=== PATIENT | male | born 1995 | race Caucasian/White ===

== ENCOUNTER 2017-04-17 16:53 | Emergency (ER) | payer OTHER ==
[2017-04-17] MEDS ORDERED: Sodium Chloride 0.9% 1,000 ML IV ONE (16:59)
--- NOTE | 2017-04-17 17:04 | EDM.PDOC ---
ED HPI GENERAL MEDICAL PROBLEM - General Stated Complaint: FLIPPED OVER Time Seen by Provider: 04/17/17 16:59 Source of Information: Reports: Patient History Limitations: Reports: No Limitations - History of Present Illness INITIAL COMMENTS - FREE TEXT/NARRATIVE: HISTORY AND PHYSICAL: History of present illness: Patient is a 21-year-old male who presents to the emergency room with complaints of syncope. He states he was bent over and pulling on something heavy when he went to back up he states he fell and woke up on the ground. Bystanders stated that he had "twitching" briefly. Coworker was driving him to the hospital and the patient was stating he was hearing music (which was not playing). Complaining of some blurred vision which is "clearing up now". States he ate a good breakfast and has been drinking fluids today. Prior to this incident was feeling well. Was not incontinent of urine or stool. Denies any abdominal pain, nausea, vomiting or diarrhea. He denies any alcohol or drug abuse. Review of systems: As per history of present illness and below otherwise all systems reviewed and negative. Past medical history: As per history of present illness and as reviewed below otherwise noncontributory. Surgical history: As per history of present illness and as reviewed below otherwise noncontributory. Social history: No reported history of drug or alcohol abuse. Family history: As per history of present illness and as reviewed below otherwise noncontributory. Physical exam: General: HEENT: No crepitus or tenderness with palpation, normocephalic, pupils reactive bilaterally, negative for conjunctival pallor or scleral icterus, mucous membranes moist, throat clear, neck supple, nontender, trachea midline. Lungs: Clear to auscultation, breath sounds equal bilaterally, chest nontender. Heart: S1S2, regular rate and rhythm Abdomen: Soft, nondistended, nontender. Negative for masses or hepatosplenomegaly. Negative for costovertebral tenderness. Pelvis: Stable nontender. Genitourinary: Deferred. Rectal: Deferred. C-Spine/Back: No pinpoint vertebral tenderness upon palpation. No crepitus, step -offs or obvious deformities noted. Patient is ambulatory with a steady gait. Able to walk on his heels and toes. No urinary or fecal incontinence. Denies any numbness or tingling to his extremities. Extremities: Atraumatic, negative for cords or calf pain. Neurovascular unremarkable. Neuro: Awake, alert, oriented. Cranial nerves II through XII unremarkable. Cerebellum unremarkable. Motor and sensory unremarkable throughout. Exam nonfocal. Bedside blood sugar was 63. Gatorade and PB sandwich was given to the patient. Repeat blood sugar (drank 1/2 gatorade) was in the high 90s. WBC was elevated but this doesn't correlate with patient presentation, also was dehydrated. CMP, troponin, chest x-ray, head CT and EKG were benign. Did offer the patient observation admission. He states that he feels safe going home and declines admission at this time. Discussed with patient to eat small frequent meals to prevent blood sugar from dropping. Encouraged him to drink plenty of fluids and decrease the energy drinks. Mother is at the bedside and states she will make him an appointment to see Dr. farris next week. She voices understanding and is agreeable to plan of care. He denies any questions at this time. Diagnostics: CBC, CMP, troponin, chest x-ray, EKG, head CT Therapeutics: IV Fluid Impression: #1 Syncope #2 Hypoglycemic Event Plan: 1. Please eat small frequent meals to prevent your blood sugar from dropping too low. 2. Stop the energy drinks. Increase your water intake. 3. Follow up with Dr. Farris next week. Return to the ED as needed and as discussed. Definitive disposition and diagnosis as appropriate pending reevaluation and review of above. Duration: Minutes: Location: Reports: Generalized - Related Data Allergies Allergy/AdvReac Type Severity Reaction Status Date / Time No Known Allergies Allergy Verified 04/17/17 17:03 Home Meds: Home Meds . [No Known Home Meds] 08/17/13 [History] Past Medical History HEENT History: Reports: None Cardiovascular History: Reports: None Respiratory History: Reports: Asthma, Bronchitis, Recurrent Gastrointestinal History: Reports: None Genitourinary History: Reports: None Musculoskeletal History: Reports: None Neurological History: Reports: None Psychiatric History: Reports: None Endocrine/Metabolic History: Reports: None Hematologic History: Reports: None Immunologic History: Reports: None Oncologic (Cancer) History: Reports: None Dermatologic History: Reports: None - Past Surgical History HEENT Surgical History: Reports: Other (See Below) Musculoskeletal Surgical History: Reports: Other (See Below) Social & Family History - Family History Family Medical History: Noncontributory Endocrine/Metabolic: Reports: Diabetes, type II - Tobacco Use Smoking Status *Q: Light Tobacco Smoker Years of Tobacco use: 1 Packs/Tins Daily: 0.1 Second Hand Smoke Exposure: No - Alcohol Use Days Per Week of Alcohol Use: 0 - Recreational Drug Use Recreational Drug Use: No ED ROS GENERAL - Review of Systems Review Of Systems: ROS reveals no pertinent complaints other than HPI. - Physical Exam Exam: See Below (See dictation) Course - Vital Signs Last Recorded V/S: Last Vital Signs Temp 98.4 F 04/17/17 17:02 Pulse 95 04/17/17 17:02 Resp 20 04/17/17 17:02 BP 129/64 04/17/17 17:02 Pulse Ox 98 04/17/17 17:02 Orthostatic Blood Pressure [ 126/62 Standing] Orthostatic Blood Pressure [ 129/61 Sitting] Orthostatic Blood Pressure [ 130/69 Supine] - Orders/Labs/Meds Orders: Active Orders 24 hr Category Date Time Status Cardiac Monitoring [RC] . DIRECTED Care 04/17/17 17:00 Active EKG Documentation Completion [RC] STAT Care 04/17/17 16:59 Active Orthostatic Vital Signs [RC] ASDIRECTED Care 04/17/17 17:00 Active Oxygen Therapy, ED [RC] ASDIRECTED Care 04/17/17 17:00 Active Chest 1V Frontal [CR] Stat Exams 04/17/17 16:59 Taken Head wo Cont [CT] Stat Exams 04/17/17 17:01 Taken Labs: Laboratory Tests 04/17/17 04/17/17 04/17/17 Range/Units 17:06 17:15 17:15 WBC 16.36 H (4.0-11.0) K/uL RBC 5.19 (4.50-5.90) M/uL Hgb 15.9 (13.0-17.0) g/dL Hct 43.9 (38.0-50.0) % MCV 84.6 (80.0-98.0) fL MCH 30.6 (27.0-32.0) pg MCHC 36.2 (31.0-37.0) g/dL RDW Std Deviation 38.9 (28.0-62.0) fl RDW Coeff of Toan 13 (11.0-15.0) % Plt Count 202 (150-400) K/uL MPV 9.80 (7.40-12.00) fL Neut % (Auto) 83.3 H (48.0-80.0) % Lymph % (Auto) 9.2 L (16.0-40.0) % Elbert % (Auto) 7.3 (0.0-15.0) % Eos % (Auto) 0.1 (0.0-7.0) % Baso % (Auto) 0.1 (0.0-1.5) % Neut # (Auto) 13.6 H (1.4-5.7) K/uL Lymph # (Auto) 1.5 (0.6-2.4) K/uL Elbert # (Auto) 1.2 H (0.0-0.8) K/uL Eos # (Auto) 0.0 (0.0-0.7) K/uL Baso # (Auto) 0.0 (0.0-0.1) K/uL Nucleated RBC % 0.0 /100WBC Nucleated RBCs # 0 K/uL Sodium 140 (136-146) mmol/L Potassium 3.7 (3.5-5.1) mmol/L Chloride 105 (98-110) mmol/L Carbon Dioxide 21 (21-31) mmol/L BUN 16 (6.0-23.0) mg/dL Creatinine 1.0 (0.6-1.5) mg/dL Est Cr Clr Drug Dosing 117.83 mL/min Estimated GFR (MDRD) > 60.0 ml/min Glucose 62 (60-110) mg/dL POC Glucose 63 (60-110) mg/dL Calcium 9.7 (8.8-10.8) mg/dL Total Bilirubin 1.2 (0.1-1.5) mg/dL AST 40 (5-40) IU/L ALT 28 (8-54) IU/L Alkaline Phosphatase 60 (40-150) Troponin I < 0.10 (0.0-0.29) NG/ML Total Protein 7.7 (6.0-8.0) g/dL Albumin 4.9 (3.5-5.0) g/dL Globulin 2.8 (2.0-3.5) g/dL Albumin/Globulin Ratio 1.8 (1.3-2.8) 04/17/17 Range/Units 18:40 WBC (4.0-11.0) K/uL RBC (4.50-5.90) M/uL Hgb (13.0-17.0) g/dL Hct (38.0-50.0) % MCV (80.0-98.0) fL MCH (27.0-32.0) pg MCHC (31.0-37.0) g/dL RDW Std Deviation (28.0-62.0) fl RDW Coeff of Toan (11.0-15.0) % Plt Count (150-400) K/uL MPV (7.40-12.00) fL Neut % (Auto) (48.0-80.0) % Lymph % (Auto) (16.0-40.0) % Elbert % (Auto) (0.0-15.0) % Eos % (Auto) (0.0-7.0) % Baso % (Auto) (0.0-1.5) % Neut # (Auto) (1.4-5.7) K/uL Lymph # (Auto) (0.6-2.4) K/uL Elbert # (Auto) (0.0-0.8) K/uL Eos # (Auto) (0.0-0.7) K/uL Baso # (Auto) (0.0-0.1) K/uL Nucleated RBC % /100WBC Nucleated RBCs # K/uL Sodium (136-146) mmol/L Potassium (3.5-5.1) mmol/L Chloride (98-110) mmol/L Carbon Dioxide (21-31) mmol/L BUN (6.0-23.0) mg/dL Creatinine (0.6-1.5) mg/dL Est Cr Clr Drug Dosing mL/min Estimated GFR (MDRD) ml/min Glucose (60-110) mg/dL POC Glucose 98 (60-110) mg/dL Calcium (8.8-10.8) mg/dL Total Bilirubin (0.1-1.5) mg/dL AST (5-40) IU/L ALT (8-54) IU/L Alkaline Phosphatase (40-150) Troponin I (0.0-0.29) NG/ML Total Protein (6.0-8.0) g/dL Albumin (3.5-5.0) g/dL Globulin (2.0-3.5) g/dL Albumin/Globulin Ratio (1.3-2.8) Meds: Medications Discontinued Medications Generic Name Dose Route Start Last Admin Trade Name Bryant PRN Reason Stop Dose Admin Sodium Chloride 1,000 mls @ 999 mls/hr 04/17/17 16:59 04/17/17 18:10 Normal Saline IV 04/17/17 17:59 999 mls/hr STAT ONE Administration Departure - Departure Time of Disposition: 19:01 Disposition: Home, Self-Care 01 Clinical Impression: Hypoglycemia Syncope Qualifiers: Syncope type: vasovagal syncope Qualified Code(s): R55 - Syncope and collapse - Discharge Information Referrals: Vladislav Farris MD [Primary Care Provider] - Additional Instructions: My general discharge The following information is given to patients seen in the emergency department who are being discharged to home. This information is to outline your options for follow-up care. We provide all patients seen in our emergency department with a follow-up referral. The need for follow-up, as well as the timing and circumstances, are variable depending upon the specifics of your emergency department visit. If you don't have a primary care physician on staff, we will provide you with a referral. We always advise you to contact your personal physician following an emergency department visit to inform them of the circumstance of the visit and for follow-up with them and/or the need for any referrals to a consulting specialist. The emergency department will also refer you to a specialist when appropriate. This referral assures that you have the opportunity for follow-up care with a specialist. All of these measure are taken in an effort to provide you with optimal care, which includes your follow-up. Under all circumstances we always encourage you to contact your private physician who remains a resource for coordinating your care. When calling for follow-up care, please make the office aware that this follow-up is from your recent emergency room visit. If for any reason you are refused follow-up, please contact the [facility] Emergency Department at and asked to speak to the emergency department charge nurse. [facility] [address] [place] [id number] 1. Please eat small frequent meals to prevent your blood sugar from dropping too low. 2. Stop the energy drinks. Increase your water intake. 3. Follow up with Dr. Farris next week. Return to the ED as needed and as discussed. - My Orders Last 24 Hours: My Active Orders 04/17/17 16:59 EKG Documentation Completion [RC] STAT Chest 1V Frontal [CR] Stat 04/17/17 17:00 Cardiac Monitoring [RC] . DIRECTED Orthostatic Vital Signs [RC] ASDIRECTED Oxygen Therapy, ED [RC] ASDIRECTED 04/17/17 17:01 Head wo Cont [CT] Stat - Assessment/Plan Last 24 Hours: My Active Orders 04/17/17 16:59 EKG Documentation Completion [RC] STAT Chest 1V Frontal [CR] Stat 04/17/17 17:00 Cardiac Monitoring [RC] . DIRECTED Orthostatic Vital Signs [RC] ASDIRECTED Oxygen Therapy, ED [RC] ASDIRECTED 04/17/17 17:01 Head wo Cont [CT] Stat
[2017-04-17 17:48] LABS: CHLORIDE,CL 105 mmol/L (98-110); SODIUM,NA 140 mmol/L (136-146)
[2017-04-17 21:12] VITALS: BP 127/77
--- NOTE | 2017-04-18 16:41 | CT ---
EXAM DATE: 04/17/17 PATIENT'S AGE: 21 Patient: AMY MCQUEEN Facility: [place], [place] Site . Site : 1995 Study: CT Head WO CONT [id number]/28/2018 6:34:11 PM Ordering Physician: Doctor Camargo Final Report: INDICATION: Fell and hit head today. TECHNIQUE: CT head without IV contrast. FINDINGS: Small polyp or retention cyst in the sphenoid sinus. No intracranial hemorrhage , edema, or mass effect. Remainder negative. IMPRESSION: No acute intracranial disease. Findings as above. Please note that all CT scans at this facility use dose modulation, iterative reconstruction, and/or weight-based dosing when appropriate to reduce radiation dose to as low as reasonably achievable. Dictated by Singh Rico MD @ Apr 17 2017 6:41PM (Electronic Signature) Report Signed by Proxy. MTDKarson
--- NOTE | 2017-04-18 16:41 | CR ---
EXAM DATE: 04/17/17 PATIENT'S AGE: 21 Patient: AMY MCQUEEN Facility: [place], [place] Site . Site : 1995 Study: XRay Chest [id number]/28/2018 6:20:58 PM Ordering Physician: Doctor Camargo Final Report: INDICATION: Syncope TECHNIQUE: Chest 1 view. COMPARISON: None FINDINGS: No pneumothorax or pleural effusion. Lungs are clear. Cardiac and mediastinal contours are within normal limits. Upper abdomen and osseous structures as imaged show no acute abnormality. IMPRESSION: No acute cardiopulmonary disease. Dictated by: Aníbal Bennett MD @ 04/17/2017 18:31:10 (Electronic Signature) Report Signed by Proxy. [facility]
== END 2017-04-17 19:15 | disposition home or self-care (01) ==
LOC: MW.ED 16:53
DX: R55 Syncope and collapse (principal); E11.649 Type 2 diabetes mellitus with hypoglycemia without coma; F17.210 Nicotine dependence, cigarettes, uncomplicated
CPT/HCPCS: 36415; 70450; 71045; 80053; 82962; 84484; 85025; 87804; 93005; 96360; 99285; J7040

== ENCOUNTER 2017-08-13 13:46 | Emergency (ER) | payer OTHER ==
[2017-08-13 14:11] VITALS: BP 138/71
--- NOTE | 2017-08-13 14:17 | EDM.PDOC ---
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 Review of Systems: As per history of present illness and below otherwise all systems reviewed and negative. Past medical history: As per history of present illness and as reviewed below otherwise noncontributory. Surgical history: As per history of present illness and as reviewed below otherwise noncontributory. Social history: No reported history of drug or alcohol abuse. Family history: As per history of present illness and as reviewed below otherwise noncontributory. Physical exam: Alert young man answers questions appropriately in full sentences without any shortness of breath he has to in his mouth. HEENT: Atraumatic, normocehpalic, pupils reactive, negative for conjunctival pallor or scleral icterus, mucous membranes moist, throat clear, neck supple, nontender, trachea midline. Lungs: Clear to auscultation, breath sounds equal bilaterally, chest non tender. Heart: S1S2, regular, negative for clicks, rubs, or JVD. Abdomen: Soft, nondistended, nontender. Negative for masses or hepatossplenmegaly. Negative for costovertebral tenderness. Pelvis: Stable nontender. Genitourinary: Deferred. Rectal: Deferred Extremities: Atraumatic, negative for cords or calf pain. Minimal edema present , he has good radial pulse, sensation is intact, fingers are able to move. Medial portion of his wrist is painful upon palpation. Neurovascular unremarkable. Neuro: Awake, alert, oriented. Cranial nerves II through XII unremarkable. Cerebellum unremarkable. Motor and sensory unremarkable throughout. Exam nonfocal. Diagnostics: []xray left wrist Therapeutics: []wrist splint Impression: []sprain left wrist Plan: []Discharged home Ibuprofen for discomfort 3 times daily Follow up with your primary care provider next week if not improving Definitive disposition and diagnosis as appropriate pending reevaluation and review of above. Onset: Sudden Duration: Day(s): (4) Location: Reports: Upper Extremity, Left Left Wrist Pain Score (Numeric/FACES): 3 - Related Data Allergies Allergy/AdvReac Type Severity Reaction Status Date / Time No Known Allergies Allergy Verified 08/13/17 14:11 Home Meds: Home Meds . [No Known Home Meds] 08/17/13 [History] Past Medical History HEENT History: Reports: None Cardiovascular History: Reports: None Respiratory History: Reports: Asthma, Bronchitis, Recurrent Gastrointestinal History: Reports: None Genitourinary History: Reports: None Musculoskeletal History: Reports: None Neurological History: Reports: None Psychiatric History: Reports: None Endocrine/Metabolic History: Reports: None Hematologic History: Reports: None Immunologic History: Reports: None Oncologic (Cancer) History: Reports: None Dermatologic History: Reports: None - Past Surgical History HEENT Surgical History: Reports: Other (See Below) Musculoskeletal Surgical History: Reports: Other (See Below) Social & Family History - Family History Family Medical History: Noncontributory Endocrine/Metabolic: Reports: Diabetes, type II - Caffeine Use Caffeine Use: Reports: None Review of Systems - Review of Systems Review Of Systems: ROS reveals no pertinent complaints other than HPI. ED EXAM, GENERAL - Physical Exam Exam: See Below (see dictation) Course - Vital Signs Last Recorded V/S: Last Vital Signs Temp 37.1 C 08/13/17 14:08 Pulse 82 08/13/17 14:08 Resp 18 08/13/17 14:08 BP 138/71 08/13/17 14:08 Pulse Ox 97 08/13/17 14:08 - Orders/Labs/Meds Orders: Active Orders 24 hr Category Date Time Status Splinting [RC] ASDIRECTED Care 08/13/17 15:01 Active Wrist 2V Lt [CR] Stat Exams 08/13/17 14:14 Taken Departure - Departure Time of Disposition: 15:06 Disposition: Home, Self-Care 01 Condition: Good Clinical Impression: Left wrist sprain Qualifiers: Encounter type: initial encounter Qualified Code(s): S63.502A - Unspecified sprain of left wrist, initial encounter - Discharge Information Instructions: Cast or Splint Care, Adult, [id number], Wrist Sprain, Adult Referrals: PCP,None [Primary Care Provider] - Forms: ED Department Discharge Additional Instructions: The following information is given to patients seen in the emergency department who are being discharged to home. This information is to outline your options for follow-up care. We provide all patients seen in our emergency department with a follow-up referral. The need for follow-up, as well as the timing and circumstances, are variable depending upon the specifics of your emergency department visit. If you don't have a primary care physician on staff, we will provide you with a referral. We always advise you to contact your personal physician following an emergency department visit to inform them of the circumstance of the visit and for follow-up with them and/or the need for any referrals to a consulting specialist. The emergency department will also refer you to a specialist when appropriate. This referral assures that you have the opportunity for followup care with a specialist. All of these measure are taken in an effort to provide you with optimal care, which includes your followup. Under all circumstances we always encourage you to contact your private physician who remains a resource for coordinating your care. When calling for followup care, please make the office aware that this follow-up is from your recent emergency room visit. If for any reason you are refused follow-up, please contact the [facility] emergency department at and asked to speak to the emergency department charge nurse. Ibuprofen 3 times daily for discomfort must eat with this Follow-up with your primary care provider in this next week if not improving Return to emergency department as directed and discussed - My Orders Last 24 Hours: My Active Orders 08/13/17 14:14 Wrist 2V Lt [CR] Stat 08/13/17 15:01 Splinting [RC] ASDIRECTED - Assessment/Plan Last 24 Hours: My Active Orders 08/13/17 14:14 Wrist 2V Lt [CR] Stat 08/13/17 15:01 Splinting [RC] ASDIRECTED
--- NOTE | 2017-08-15 12:29 | CR ---
EXAM DATE: 08/13/17 PATIENT'S AGE: 22 Patient: AMY MCQUEEN Facility: [place], [place] Site . Site : 1995 Study: XRay Extremity Left wrist [id number] 2:32:10 PM Ordering Physician: Doctor Camargo Final Report: INDICATION: Left wrist injury. TECHNIQUE: Two views of the left wrist. COMPARISON: None. FINDINGS: No fracture, subluxation or other abnormality. CONCLUSION: Negative left wrist. Dictated by Derek Kenny MD @ Aug 13 2017 2:56PM (Electronic Signature) Report Signed by Proxy. [facility]
== END 2017-08-13 15:17 | disposition home or self-care (01) ==
LOC: MW.ED 13:46
DX: S63.502A Unspecified sprain of left wrist, initial encounter (principal); W22.8XXA Striking against or struck by other objects, initial encounter; J45.909 Unspecified asthma, uncomplicated; Y99.0 Civilian activity done for income or pay
CPT/HCPCS: 73100-26-LT; 73100-LT; 99283

== ENCOUNTER 2017-11-13 20:08 | Emergency (ER) | payer OTHER ==
--- NOTE | 2017-11-13 20:23 | EDM.PDOC ---
ED HPI GENERAL MEDICAL PROBLEM - General Chief Complaint: Upper Extremity Injury/Pain Stated Complaint: SLAMMED LEFT HAND IN CAR DOOR. Time Seen by Provider: 11/13/17 20:21 Source of Information: Reports: Patient History Limitations: Reports: No Limitations - History of Present Illness INITIAL COMMENTS - FREE TEXT/NARRATIVE: HISTORY AND PHYSICAL: History of present illness: Patient is a 22-year-old male here with complaint of right hand injury. He states that he slammed his right hand in a car door this afternoon. Otherwise in his usual state of health and denies any other trauma. Review of systems: As per history of present illness and below otherwise all systems reviewed and negative. Past medical history: As per history of present illness and as reviewed below otherwise noncontributory. Surgical history: As per history of present illness and as reviewed below otherwise noncontributory. Social history: No reported history of drug or alcohol abuse. Family history: As per history of present illness and as reviewed below otherwise noncontributory. Physical exam: General: Patient sitting comfortably in no acute distress and nontoxic appearing HEENT: Atraumatic, normocephalic, pupils reactive, negative for conjunctival pallor or scleral icterus, mucous membranes moist, throat clear, neck supple, nontender, trachea midline. No meningeal signs. Lungs: Clear to auscultation, breath sounds equal bilaterally, chest nontender. Heart: S1S2, regular, negative for clicks, rubs, or overt murmur. Extremities: Right hand is swollen on the ulnar. There is ecchymosis over the volar aspect of the hand. He has full ROM at MCP, PIP, DIP. Small abrasion to the 3rd mcp. negative for cords or calf pain. Neurovascular unremarkable. Neuro: Awake, alert, oriented. Cranial nerves II through XII unremarkable. Cerebellum unremarkable. Motor and sensory unremarkable throughout. Exam nonfocal. Notes: Diagnostics: X-ray right hand Therapeutics: None Prescriptions: None Impression: Right hand injury Plan: 1. Ice, elevate, and motrin as needed 2. Follow up with your primary care provider or orthopedics 3. Return to ED as needed as discussed Definitive disposition and diagnosis as appropriate pending reevaluation and review of above. - Related Data Allergies Allergy/AdvReac Type Severity Reaction Status Date / Time No Known Allergies Allergy Verified 11/13/17 20:23 Home Meds: Home Meds . [No Known Home Meds] 08/17/13 [History] Past Medical History HEENT History: Reports: None Cardiovascular History: Reports: None Respiratory History: Reports: Asthma, Bronchitis, Recurrent Gastrointestinal History: Reports: None Genitourinary History: Reports: None Musculoskeletal History: Reports: None Neurological History: Reports: None Psychiatric History: Reports: None Endocrine/Metabolic History: Reports: None Hematologic History: Reports: None Immunologic History: Reports: None Oncologic (Cancer) History: Reports: None Dermatologic History: Reports: None - Past Surgical History HEENT Surgical History: Reports: Other (See Below) Musculoskeletal Surgical History: Reports: Other (See Below) Social & Family History - Family History Family Medical History: Noncontributory Endocrine/Metabolic: Reports: Diabetes, type II - Caffeine Use Caffeine Use: Reports: None Review of Systems - Review of Systems Review Of Systems: ROS reveals no pertinent complaints other than HPI. ED EXAM, GENERAL - Physical Exam Exam: See Below (See dictation) Course - Vital Signs Last Recorded V/S: Last Vital Signs Temp 36.6 C 11/13/17 20:23 Pulse 70 11/13/17 20:23 Resp 18 11/13/17 20:23 BP 144/73 H 11/13/17 20:23 Pulse Ox 98 11/13/17 20:23 - Orders/Labs/Meds Orders: Active Orders 24 hr Category Date Time Status Hand 2V Rt [CR] Stat Exams 11/13/17 20:21 Ordered Departure - Departure Time of Disposition: 21:15 Disposition: Home, Self-Care 01 Condition: Good Clinical Impression: Injury of right hand - Discharge Information Referrals: PCP,None [Primary Care Provider] - Forms: ED Department Discharge Additional Instructions: The following information is given to patients seen in the emergency department who are being discharged to home. This information is to outline your options for follow-up care. We provide all patients seen in our emergency department with a follow-up referral. The need for follow-up, as well as the timing and circumstances, are variable depending upon the specifics of your emergency department visit. If you don't have a primary care physician on staff, we will provide you with a referral. We always advise you to contact your personal physician following an emergency department visit to inform them of the circumstance of the visit and for follow-up with them and/or the need for any referrals to a consulting specialist. The emergency department will also refer you to a specialist when appropriate. This referral assures that you have the opportunity for follow-up care with a specialist. All of these measure are taken in an effort to provide you with optimal care, which includes your follow-up. Under all circumstances we always encourage you to contact your private physician who remains a resource for coordinating your care. When calling for follow-up care, please make the office aware that this follow-up is from your recent emergency room visit. If for any reason you are refused follow-up, please contact the [facility] Emergency Department at and asked to speak to the emergency department charge nurse. [facility] Primary [facility] [place] [id number] [facility] Special[facility] - [facility] Professional Building [address] [place] [address], [address] [place] [address] 1. Ice, elevate, and motrin as needed 2. Follow up with your primary care provider or orthopedics 3. Return to ED as needed as discussed - My Orders Last 24 Hours: My Active Orders 11/13/17 20:21 Hand 2V Rt [CR] Stat - Assessment/Plan Last 24 Hours: My Active Orders 11/13/17 20:21 Hand 2V Rt [CR] Stat
[2017-11-13 21:23] VITALS: BP 142/79
--- NOTE | 2017-11-14 15:18 | CR ---
EXAM DATE: 11/13/17 PATIENT'S AGE: 22 Patient: AMY MCQUEEN Facility: [place], [place] Site . Site : 1996 Study: XRay Extremity Right hand [id number] 8:53:12 PM Ordering Physician: Doctor Camargo Final Report: Indication: Crush injury. Technique: Two views of the right hand were obtained. Comparison: None Findings: No acute fracture or subluxation is identified. The joint spaces are well maintained. Impression: No acute fracture. Dictated by Karon Connors MD @ Nov 13 2017 9:13PM (Electronic Signature) Report Signed by Proxy. WILLIAM
== END 2017-11-13 21:23 | disposition home or self-care (01) ==
LOC: MW.ED 20:08
DX: S60.221A Contusion of right hand, initial encounter (principal); W23.0XXA Caught, crushed, jammed, or pinched between moving objects, initial encounter
CPT/HCPCS: 73120-26-RT; 73120-RT; 99283

== ENCOUNTER 2019-11-06 20:13 | Emergency (ER) | payer BC, OTHER ==
--- NOTE | 2019-11-06 20:39 | EDM.PDOC ---
ED HPI GENERAL MEDICAL PROBLEM - General Chief Complaint: Upper Extremity Injury/Pain Stated Complaint: hand injury/pain Time Seen by Provider: 11/06/19 20:15 Source of Information: Reports: Patient History Limitations: Reports: No Limitations - History of Present Illness INITIAL COMMENTS - FREE TEXT/NARRATIVE: HISTORY AND PHYSICAL: History of present illness: Patient is a 24-year-old male who presents to the emergency room with complaints of right hand pain. He states the pain is worse with flexion and extension of the fingers. Denies any injury, trauma or falls. He has not noticed any redness, soft tissue swelling or open areas of skin. He is left-hand dominant. He offers no systemic complaints. Review of systems: As per history of present illness and below otherwise all systems reviewed and negative. Past medical history: As per history of present illness and as reviewed below otherwise noncontributory. Surgical history: As per history of present illness and as reviewed below otherwise noncontributory. Social history: See social history for further information Family history: As per history of present illness and as reviewed below otherwise non contributory. Physical exam: General: Well developed and well nourished. Alert and orientated x 3. Nontoxic in appearance and in no acute distress. Vital signs are stable and have been reviewed by me. Nursing notes were reviewed. HEENT: Atraumatic, normocephalic, pupils equal and reactive bilaterally, negative for conjunctival pallor or scleral icterus, mucous membranes moist, trachea midline. No drooling or trismus noted. No meningeal signs. No hot potato voice noted. Lungs: Clear to auscultation, breath sounds equal bilaterally. Normal work of breathing, no accessory muscles used. Heart: S1S2, regular rate and rhythm without overt murmur Abdomen: Soft, nondistended, nontender. Skin: Scar noted along the third knuckle of right hand, reports this is 6+ years old. No erythema, soft tissue swelling or open sores noted. Intact, warm, dry. No lesions or rashes noted. Hematologic: No petechiae or purpra. Mucosa appropriate color and normal nail bed color and refill. Extremities: Atraumatic, pain with palpation of the mid dorsal aspect of right hand, moves all extremities per self without difficulty or deficits, strong radial pulse. Capillary refill less than 3 seconds. Strong grasp with good flexion and extension of all fingers. Neurovascular unremarkable. Neuro: Awake, alert, oriented. Cranial nerves II through XII unremarkable. Cerebellum unremarkable. Motor and sensory unremarkable throughout. Exam nonfocal. Psychiatric: Mood and affect are appropriate. Normal thought process. Answering questions appropriately. Notes: X-ray shows no acute findings. We discussed signs and symptoms that would prompt them to return to the Emergency Department. Medication, follow up and supportive care measures were reviewed and discussed. Voices understanding and is agreeable to plan of care. Denies any further questions or concerns at this time. Diagnostics: X-ray right hand Therapeutics: None Prescription: Diclofenac Impression: Right hand pain Plan: 1. Today your physical exam is within normal limits. Your x-ray shows no acute findings. Rest, ice, elevate the affected extremity. Please wear the splint as directed. 2. Tylenol and/or Ibuprofen as needed for pain management. 3. Follow up with the Orthopedic provider as we discussed. We always encourage you to follow up with your primary care provider or recommended specialist in the next few days for re-evaluation and further care/management. If your symptoms should worsen, new symptoms develop or any of the signs and symptoms we discussed should arise please return to the emergency room or call 911 (if need ed). Definitive disposition and diagnosis as appropriate pending reevaluation and review of above. right hand Pain Score (Numeric/FACES): 5 - Related Data Allergies Allergy/AdvReac Type Severity Reaction Status Date / Time No Known Allergies Allergy Verified 11/06/19 20:27 Home Meds: Home Meds . [No Known Home Meds] 08/17/13 [History] Past Medical History HEENT History: Reports: None Cardiovascular History: Reports: None Respiratory History: Reports: None Gastrointestinal History: Reports: None Genitourinary History: Reports: None Musculoskeletal History: Reports: None Neurological History: Reports: None Psychiatric History: Reports: None Endocrine/Metabolic History: Reports: None Insulin Pump Model and Claims Account Manager: None Hematologic History: Reports: None Immunologic History: Reports: None Oncologic (Cancer) History: Reports: None Dermatologic History: Reports: None - Infectious Disease History Infectious Disease History: Reports: None - Past Surgical History Head Surgeries/Procedures: Reports: None HEENT Surgical History: Reports: Other (See Below) Musculoskeletal Surgical History: Reports: Other (See Below) Other Musculoskeletal Surgeries/Procedures:: hand surgery Social & Family History - Family History Family Medical History: Noncontributory Endocrine/Metabolic: Reports: Diabetes, type II - Tobacco Use Smoking Status *Q: Never Smoker - Caffeine Use Caffeine Use: Reports: Coffee, Energy Drinks, Soda - Recreational Drug Use Recreational Drug Use: No Review of Systems - Review of Systems Review Of Systems: Comprehensive ROS is negative, except as noted in HPI. ED EXAM, GENERAL - Physical Exam Exam: See Below (See dictation) Course - Vital Signs Last Recorded V/S: Last Vital Signs Temp 96.8 F L 11/06/19 20:27 Pulse 87 11/06/19 20:27 Resp 18 11/06/19 20:27 BP 126/62 11/06/19 20:27 Pulse Ox 98 11/06/19 20:27 Departure - Departure Time of Disposition: 21:28 Disposition: Home, Self-Care 01 Clinical Impression: Right hand pain - Discharge Information Instructions: Pain Without a Known Cause Referrals: Vladislav Farris MD [Primary Care Provider] - Forms: ED Department Discharge Additional Instructions: The following information is given to patients seen in the emergency department who are being discharged to home. This information is to outline your options for follow-up care. We provide all patients seen in our emergency department with a follow-up referral. The need for follow-up, as well as the timing and circumstances, are variable depending upon the specifics of your emergency department visit. If you don't have a primary care physician on staff, we will provide you with a referral. We always advise you to contact your personal physician following an emergency department visit to inform them of the circumstance of the visit and for follow-up with them and/or the need for any referrals to a consulting specialist. The emergency department will also refer you to a specialist when appropriate. This referral assures that you have the opportunity for follow-up care with a specialist. All of these measure are taken in an effort to provide you with optimal care, which includes your follow-up. Under all circumstances we always encourage you to contact your private physician who remains a resource for coordinating your care. When calling for follow-up care, please make the office aware that this follow-up is from your recent emergency room visit. If for any reason you are refused follow-up, please contact the [facility] Emergency Department at and asked to speak to the emergency department charge nurse. [facility] Primary Care [address] [place] [address] [facility] [address] [place] [address] Thank you for choosing the [facility] emergency department in [place] for your medical needs today. It was a pleasure caring for you. Today you were seen in the emergency department for hand pain without injury. 1. Today your physical exam is within normal limits. Your x-ray shows no acute findings. This could be tendonitis or over use syndrome. Rest, ice, elevate the affected extremity. Please wear the splint as directed. 2. Tylenol and/or Ibuprofen as needed for pain management. 3. Follow up with the Orthopedic provider as we discussed. We always encourage you to follow up with your primary care provider or recommended specialist in the next few days for re-evaluation and further care/management. If your symptoms should worsen, new symptoms develop or any of the signs and symptoms we discussed should arise please return to the emergency room or call 911 (if needed). Sepsis Event Note (ED) - Evaluation Sepsis Screening Result: No Definite Risk - Focused Exam Vital Signs: Vital Signs Temp Pulse Resp BP Pulse Ox 11/06/19 20:27 96.8 F L 87 18 126/62 98
--- NOTE | 2019-11-06 21:22 | CR ---
Indication: Pain Technique: Right hand 3 views. Comparison: November 13, 2017. Findings: Bones: Alignment is normal. No fractures or bone lesions. Joint spaces: Unremarkable. Soft tissues: Unremarkable. Impression: Unremarkable right hand. No finding to explain pain. Dictated by Young Gagnon MD @ Nov 06 2019 9:19PM Signed by Dr. Young Gagnon @ Nov 06 2019 9:21PM
[2019-11-06 21:42] VITALS: BP 118/74; PULSE 81
== END 2019-11-06 21:39 | disposition home or self-care (01) ==
LOC: MW.ED 20:13
DX: M79.641 Pain in right hand (principal)
CPT/HCPCS: 29125; 73130-26-RT; 73130-RT; 99283; 99283-25

== ENCOUNTER 2020-01-11 20:26 | Emergency (ER) | payer BC ==
--- NOTE | 2020-01-11 21:48 | CR ---
Indication: Injury Technique: Three views of the right hand Comparison: None available Findings: Bones: Alignment is normal. No fractures or bone lesions. Joint spaces: Unremarkable. Soft tissues: A small calcific or metallic density in the distal tip of the 4th digit suggestive of a foreign body. A small focus of adjacent soft tissue irregularity/injury. Focal dorsal soft tissue swelling at the level of the MCP joints. Impression: No acute fracture or dislocation. A small focus of soft tissue injury at the tip of the 4th digit with a small adjacent soft tissue foreign body. Dictated by Michael Chavez MD @ Jan 11 2020 9:43PM Signed by Dr. Michael Chavez @ Jan 11 2020 9:46PM
--- NOTE | 2020-01-11 23:23 | EDM.PDOC ---
ED HPI GENERAL MEDICAL PROBLEM - General Chief Complaint: Upper Extremity Injury/Pain Stated Complaint: RIGHT HAND FINGER INJURY Time Seen by Provider: 01/11/20 20:29 Source of Information: Reports: Patient History Limitations: Reports: No Limitations - History of Present Illness INITIAL COMMENTS - FREE TEXT/NARRATIVE: 24-year-old male presents with right fourth finger injury this morning. He smashed his right fourth digit in a car door this morning. He is left-handed. Tetanus is up-to-date. ROS: A 10-point review of systems, other than pertinent positives and negatives as stated per HPI, is otherwise negative Past medical history: No additional pertinent history Past Surgical history: No additional pertinent history Social history: No additional pertinent history Family history: No additional pertinent history PHYSICAL EXAM General: AOx4, GCS = 15, No distress HEENT: dry mucous membrane Neck: supple, no meningismus, no Kernig or Brudzinski Cardiac: S1S2 RRR Respiratory: CTAB, no crackles or rales, no wheezing Abdomen: Soft, nontender, no rebound or guarding, nondistended, no pulsatile mass. Back: nontender Musculoskeletal: NVI distally, mild contusion to the right fourth distal phalanx, no subungual hematoma, normal range of motion at MCP/PIP/DIP joint, no active bleeding, no deformity Neuro: No focal deficits, CN 2 - 12 WNL. right 4th digit Pain Score (Numeric/FACES): 7 - Related Data Allergies Allergy/AdvReac Type Severity Reaction Status Date / Time No Known Allergies Allergy Verified 01/11/20 22:56 Home Meds: Home Meds Albuterol Sulfate [Albuterol Sulfate Hfa] 2 puff INH ASDIRECTED PRN 01/11/20 [History] Past Medical History HEENT History: Reports: None Cardiovascular History: Reports: None Respiratory History: Reports: None Gastrointestinal History: Reports: None Genitourinary History: Reports: None Musculoskeletal History: Reports: None Neurological History: Reports: None Psychiatric History: Reports: None Endocrine/Metabolic History: Reports: None Insulin Pump Model and Insurance Office Manager: None Hematologic History: Reports: None Immunologic History: Reports: None Oncologic (Cancer) History: Reports: None Dermatologic History: Reports: None - Infectious Disease History Infectious Disease History: Reports: None - Past Surgical History Head Surgeries/Procedures: Reports: None HEENT Surgical History: Reports: Eye Surgery, Other (See Below) Musculoskeletal Surgical History: Reports: Other (See Below) Other Musculoskeletal Surgeries/Procedures:: hand surgery. right great toe amputation Social & Family History - Family History Family Medical History: Noncontributory Endocrine/Metabolic: Reports: Diabetes, type II - Tobacco Use Tobacco Use Status *Q: Never Tobacco User - Caffeine Use Caffeine Use: Reports: Energy Drinks - Recreational Drug Use Recreational Drug Use: No Review of Systems - Review of Systems Review Of Systems: See Below (see dictation) ED EXAM, GENERAL - Physical Exam Exam: See Below (see dictation) Course - Vital Signs Last Recorded V/S: Last Vital Signs Temp 97.2 F 01/11/20 22:56 Pulse 72 01/11/20 22:56 Resp 16 01/11/20 22:56 BP 127/42 L 01/11/20 22:56 Pulse Ox 96 01/11/20 22:56 - Re-Assessments/Exams Free Text/Narrative Re-Assessment/Exam: 01/11/20 23:20 After Xray in the ER, he is currently stable for discharge. I performed a repeat exam and did not appreciate new abnormal findings. Patient exhibits normal vital signs and has a normal gait on road test. I advised the patient to return to the ER for reevaluation if symptoms worsened, including fever, worsening pain, or any other worrisome symptoms. I instructed the patient to follow up with their PCP within 2-3 days. MEDICAL DECISION MAKING: I reviewed the patients past medical records, lab and radiographic findings. I discussed the case with the patient. My differential diagnosis included: Fracture, subungual hematoma, nailbed fracture. Departure - Departure Time of Disposition: 23:20 Disposition: Home, Self-Care 01 Condition: Good Clinical Impression: Contusion Qualifiers: Encounter type: initial encounter Contusion area: finger Damage to nail status: without damage Laterality: right - Discharge Information *PRESCRIPTION DRUG MONITORING PROGRAM REVIEWED*: Not Applicable *COPY OF PRESCRIPTION DRUG MONITORING REPORT IN PATIENT REYNOLD: Not Applicable Instructions: Contusion Referrals: Vladislav Farris MD [Primary Care Provider] - Additional Instructions: The need for follow-up, as well as the timing and circumstances, are variable depending upon the specifics of your emergency department visit. If you don't have a primary care physician on staff, we will provide you with a referral. We always advise you to contact your personal physician following an emergency department visit to inform them of the circumstance of the visit and for follow-up with them and/or the need for any referrals to a consulting specialist. The emergency department will also refer you to a specialist when appropriate. This referral assures that you have the opportunity for follow-up care with a specialist. All of these measure are taken in an effort to provide you with optimal care, which includes your follow-up. Under all circumstances we always encourage you to contact your private physician who remains a resource for coordinating your care. When calling for follow-up care, please make the office aware that this follow-up is from your recent emergency room visit. If for any reason you are refused follow-up, please contact the [facility] Emergency Department at and asked to speak to the emergency department charge nurse. If you do not have a primary care doctor, please follow up with the clinics below within 3-5 days. [facility] - Primary Care [address] [place] [address] [id number] [address] [address] Sepsis Event Note (ED) - Evaluation Sepsis Screening Result: No Definite Risk - Focused Exam Vital Signs: Vital Signs Temp Pulse Resp BP Pulse Ox 01/11/20 22:56 97.2 F 72 16 127/42 L 96
[2020-01-12 01:00] VITALS: BP 125/41; PULSE 75
== END 2020-01-11 23:38 | disposition home or self-care (01) ==
LOC: MW.ED 20:26
DX: S60.041A Contusion of right ring finger without damage to nail, initial encounter (principal); W23.0XXA Caught, crushed, jammed, or pinched between moving objects, initial encounter
CPT/HCPCS: 73130-26-RT; 73130-RT; 99282; 99283